=== PATIENT | female | born 1940 | race Caucasian/White ===

== ENCOUNTER 2018-10-23 21:05 | Observation (INO) | payer MEDICARE, BC ==
[2018-10-23] MEDS ORDERED: Nitroglycerin 0.4 MG Tab.SL ONE (21:27)
[2018-10-23] MEDS ORDERED: Metoprolol Tartrate 25 MG Tab PO ONE (21:27)
[2018-10-23] MEDS ORDERED: Metoprolol Tartrate 25 MG Tab ONE (21:27)
[2018-10-23] MEDS ORDERED: Nitroglycerin 0.4 MG Tab.SL SL PRN (21:27)
--- NOTE | 2018-10-23 21:32 | EDM.PDOC ---
ED HPI GENERAL MEDICAL PROBLEM - General Chief Complaint: Chest Pain Stated Complaint: chest pain, left arm pain Time Seen by Provider: 10/23/18 21:10 Source of Information: Reports: Patient, Family History Limitations: Reports: No Limitations - History of Present Illness INITIAL COMMENTS - FREE TEXT/NARRATIVE: Patient is a 78-year-old female who presents to the emergency room with chest pain patient states that around 12 she started having some chest discomfort this progressed to arouse for which he took some hydrocodone and aspirin without change in the pain progressed got worse and they decided to come to the ER at that time at this time pain is localized to the left mid upper chest radiating into the left arm pain is worse with movement and better with rest Onset: Today Duration: Hour(s):, Recurring Location: Reports: Chest Quality: Reports: Dull, Pressure, Throbbing Severity: Moderate Improves with: Reports: Rest Worsens with: Reports: Movement Associated Symptoms: Reports: Chest Pain 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, Other Medication(s) Left Chest Pain Score (Numeric/FACES): 6 - Related Data Allergies Allergy/AdvReac Type Severity Reaction Status Date / Time No Known Allergies Allergy Verified 10/23/18 21:13 Home Meds: Home Meds Calcium Carbonate [Calcium] 600 mg PO DAILY 11/16/14 [History] Folic Acid 1 mg PO WEEKLY 11/16/14 [History] Losartan [Cozaar] 50 mg PO DAILY 11/16/14 [History] Methotrexate Sodium [Methotrexate] 17.5 mg PO WEEKLY 11/16/14 [History] Pravastatin [Pravachol] 40 mg PO DAILY 11/16/14 [History] Aspirin [Halfprin] 81 mg PO BRK 04/13/15 [History] Multivitamin [Multivitamins] 1 tab PO DAILY 04/13/15 [History] Aspirin 325 mg PO ONETIME 10/23/18 [History] Hydrocodone/Acetaminophen [Hydrocodon-Acetaminophen 5-325] 1 tab PO ONETIME 05/01 [History] Past Medical History Cardiovascular History: Reports: CAD, High Cholesterol, Hypertension Other Cardiovascular History: Hyperlipidemia Musculoskeletal History: Reports: RA - Infectious Disease History Infectious Disease History: Reports: Measles - Past Surgical History GI Surgical History: Reports: Appendectomy, Cholecystectomy, Colonoscopy Female Surgical History: Reports: Other (See Below) Other Female Surgeries/Procedures: kidney cyst removed Social & Family History - Caffeine Use Caffeine Use: Reports: None ED ROS GENERAL - Review of Systems Review Of Systems: See Below Constitutional: Reports: No Symptoms HEENT: Reports: No Symptoms Respiratory: Reports: No Symptoms Cardiovascular: Reports: Chest Pain, Other (History of coronary arterial) GI/Abdominal: Reports: No Symptoms : Reports: No Symptoms Musculoskeletal: Reports: Neck Pain (Posterior), Arm Pain (Left arm) Skin: Reports: No Symptoms Neurological: Reports: No Symptoms Psychiatric: Reports: No Symptoms Hematologic/Lymphatic: Reports: No Symptoms Immunologic: Reports: No Symptoms ED EXAM, GENERAL - Physical Exam Exam: See Below Exam Limited By: No Limitations General Appearance: Alert, WD/WN, No Apparent Distress Ears: Normal External Exam, Normal Canal, Hearing Grossly Normal, Normal TMs Nose: Normal Inspection, Normal Mucosa, No Blood Throat/Mouth: Normal Inspection, Normal Lips, Normal Teeth, Normal Gums, Normal Oropharynx, Normal Voice, No Airway Compromise Head: Atraumatic, Normocephalic Neck: Limited Range of Motion, Tender Midline (Posterior) Respiratory/Chest: No Respiratory Distress, Lungs Clear, Normal Breath Sounds, No Accessory Muscle Use, Chest Non-Tender Cardiovascular: Normal Peripheral Pulses, Regular Rate, Rhythm, No Edema, No Gallop, No JVD, No Murmur, No Rub GI/Abdominal: Normal Bowel Sounds, Soft, Non-Tender, No Organomegaly, No Distention, No Abnormal Bruit, No Mass (Female) Exam: Deferred Rectal (Female) Exam: Deferred Back Exam: Normal Inspection, Full Range of Motion, NT Extremities: Normal Inspection, Normal Range of Motion, Non-Tender, Normal Capillary Refill, No Pedal Edema Course - Vital Signs Last Recorded V/S: Last Vital Signs Temp 99.4 F 10/23/18 21:05 Pulse 100 10/23/18 21:33 Resp 17 10/23/18 21:33 BP 136/60 10/23/18 21:33 Pulse Ox 92 L 10/23/18 21:33 - Orders/Labs/Meds Orders: Active Orders 24 hr Category Date Time Status Chest 1V Frontal [CR] Routine Exams 10/23/18 21:44 Taken Labs: Laboratory Tests 10/23/18 10/23/18 10/23/18 Range/Units 21:15 21:15 21:15 WBC 10.4 H (4.0-10.2) K/uL RBC 4.22 (3.77-5.09) M/uL Hgb 13.0 (11.7-15.5) g/dL Hct 39.1 (34.0-46.0) % MCV 92.7 (84.0-98.0) fL MCH 30.8 (28.2-33.3) pg MCHC 33.2 (31.7-36.0) g/dL RDW 15.2 H (11.2-14.1) % Plt Count 246 (150-350) K/uL Neut % (Auto) 69.7 (45.0-80.0) % Lymph % (Auto) 21.1 (10.0-50.0) % [place] % (Auto) 8.2 (2.0-14.0) % Eos % (Auto) 0.6 (0.0-5.0) % Baso % (Auto) 0.4 (0.0-2.0) % Neut # (Auto) 7.27 H (1.40-7.00) K/uL Lymph # (Auto) 2.20 (0.50-3.50) K/uL [place] # (Auto) 0.86 (0.00-1.00) K/uL Eos # (Auto) 0.06 (0.00-0.50) K/uL Baso # (Auto) 0.04 (0.00-0.20) K/uL PT 10.5 (9.5-12.0) SEC INR 1.0 APTT 26.2 (21.0-31.3) SEC D-Dimer, Quantitative (0-400) ng/mL Sodium 140 (136-145) mmol/L Potassium 3.5 (3.5-5.1) mmol/L Chloride 103 (98-107) mmol/L Carbon Dioxide 28.3 (21.0-32.0) mmol/L BUN 19 H (7-18) mg/dL Creatinine 0.72 (0.51-1.17) mg/dL Est Cr Clr Drug Dosing 52.41 mL/min Estimated GFR (MDRD) > 60 mL/min Glucose 146 H (74-106) mg/dL Lactic Acid (0.4-2.0) mmol/L Calcium 9.1 (8.5-10.1) mg/dL Magnesium 1.7 L (1.8-2.4) mg/dL Total Bilirubin 0.5 (0.2-1.0) mg/dL AST 26 (15-37) U/L ALT 24 (12-78) U/L Alkaline Phosphatase 77 (46-116) IU/L Creatine Kinase 51 (26-308) U/L Creatine Kinase Index 2.2 (0.0-2.5) % CK-MB (CK-2) 1.10 (0.00-3.60) ng/mL Troponin I 0.000 (0.000-0.056) ng/mL NT-Pro-B Natriuret Pep 152 H (0-125) pg/mL Total Protein 6.9 (6.4-8.2) g/dL Albumin 3.3 L (3.4-5.0) g/dL TSH, Ultra Sensitive 2.240 (0.358-3.740) mIU/mL 10/23/18 10/23/18 Range/Units 21:15 21:15 WBC (4.0-10.2) K/uL RBC (3.77-5.09) M/uL Hgb (11.7-15.5) g/dL Hct (34.0-46.0) % MCV (84.0-98.0) fL MCH (28.2-33.3) pg MCHC (31.7-36.0) g/dL RDW (11.2-14.1) % Plt Count (150-350) K/uL Neut % (Auto) (45.0-80.0) % Lymph % (Auto) (10.0-50.0) % [place] % (Auto) (2.0-14.0) % Eos % (Auto) (0.0-5.0) % Baso % (Auto) (0.0-2.0) % Neut # (Auto) (1.40-7.00) K/uL Lymph # (Auto) (0.50-3.50) K/uL [place] # (Auto) (0.00-1.00) K/uL Eos # (Auto) (0.00-0.50) K/uL Baso # (Auto) (0.00-0.20) K/uL PT (9.5-12.0) SEC INR APTT (21.0-31.3) SEC D-Dimer, Quantitative 630 H (0-400) ng/mL Sodium (136-145) mmol/L Potassium (3.5-5.1) mmol/L Chloride (98-107) mmol/L Carbon Dioxide (21.0-32.0) mmol/L BUN (7-18) mg/dL Creatinine (0.51-1.17) mg/dL Est Cr Clr Drug Dosing mL/min Estimated GFR (MDRD) mL/min Glucose (74-106) mg/dL Lactic Acid 0.8 (0.4-2.0) mmol/L Calcium (8.5-10.1) mg/dL Magnesium (1.8-2.4) mg/dL Total Bilirubin (0.2-1.0) mg/dL AST (15-37) U/L ALT (12-78) U/L Alkaline Phosphatase (46-116) IU/L Creatine Kinase (26-308) U/L Creatine Kinase Index (0.0-2.5) % CK-MB (CK-2) (0.00-3.60) ng/mL Troponin I (0.000-0.056) ng/mL NT-Pro-B Natriuret Pep (0-125) pg/mL Total Protein (6.4-8.2) g/dL Albumin (3.4-5.0) g/dL TSH, Ultra Sensitive (0.358-3.740) mIU/mL Meds: Medications Discontinued Medications Generic Name Dose Route Start Last Admin Trade Name Deng PRN Reason Stop Dose Admin Metoprolol Tartrate Confirm 10/23/18 21:27 Lopressor Administered 10/23/18 21:28 Dose 25 mg .ROUTE .STK-MED ONE Nitroglycerin Confirm 10/23/18 21:27 Nitrostat Administered 10/23/18 21:28 Dose 0.4 mg .ROUTE .STK-MED ONE Departure - Departure Time of Disposition: 23:17 Disposition: Refer to Observation Condition: Fair Clinical Impression: Atypical chest pain Chest pain Qualifiers: Chest pain type: unspecified Qualified Code(s): R07.9 - Chest pain, unspecified - My Orders Last 24 Hours: My Active Orders 10/23/18 21:44 Chest 1V Frontal [CR] Routine - Assessment/Plan Last 24 Hours: My Active Orders 10/23/18 21:44 Chest 1V Frontal [CR] Routine
[2018-10-23 21:49] LABS: CHLORIDE,CL 103 mmol/L (98-107); SODIUM,NA 140 mmol/L (136-145)
[2018-10-23] MEDS ORDERED: Ondansetron 4 MG Tab.DIS PO PRN (23:26)
[2018-10-24] MEDS ORDERED: Acetaminophen/HYDROcodone 325-10 MG Tab PO PRN (00:03)
[2018-10-24] MEDS ORDERED: Enoxaparin 30 MG/0.3 ML Syringe SUBCUT SCH (08:00)
--- NOTE | 2018-10-24 11:56 | PCM.DCSUM1 ---
Discharge Summary - Hospital Course Brief History: Admitted for serial troponin measurements and telemetry monitoring due to complaint of left sided chest and shoulder pain. Diagnosis: Stroke: No - Discharge Data Discharge Date: 10/24/18 Discharge Disposition: Home, Self-Care 01 Condition: Good - Discharge Diagnosis/Problem(s) (1) Left shoulder pain SNOMED Code(s): 58889237, 20416594 ICD Code: M25.512 - PAIN IN LEFT SHOULDER Status: Acute Priority: High Current Visit: Yes Onset Date: 10/23/18 Problem Details: Patient initially evaluated in ER due to development of left chest pain in pectoral area and left shoulder. This was noted several hours after washing windows. Patient reports that she has history of arthritis and has had similar pain in past after activity, but usually not as bad nor prolonged as this pain. Pain is reproducible with movement of left shoulder and palpation of left shoulder. Qualifiers: Chronicity: acute Qualified Code(s): M25.512 - Pain in left shoulder (2) Chest pain SNOMED Code(s): 47792990 ICD Code: R07.9 - CHEST PAIN, UNSPECIFIED Status: Acute Priority: High Current Visit: Yes Problem Details: Serial labs noted Troponin levels of zero. No acute changes on EKG suggestive of ischemia. Pain is reproducible with palpation and movement of left shoulder joint. Suspect musculoskeletal cause. Patient's DDimer elevated mildly. Patient denies SOB and does not wish to have a CT to formally rule out PE at this time. We discussed signs/symptoms suggestive of PE and she says that she will return for re-evaluation if any increasing concern develops. Qualifiers: Chest pain type: unspecified Qualified Code(s): R07.9 - Chest pain, unspecified - Patient Summary/Data Hospital Course: Negative serial troponins. Unremarkable telemetry. Patient is comfortable if she is able to sit/lie still. Pain complaint is triggered with movement of shoulder/pressure on shoulder. Discharge home at this time. To return if any worsening is noted. Consider CT of chest if any shortness of breath develops/ pain persists or worsens. Pt declined CT of chest today for r/o PE. Will give small amount of Prednisone and Tramadol to help with pain complaint. Precautions reviewed. To take it easy and follow up as needed if further problems are noted. - Patient Instructions Diet: Usual Diet as Tolerated Activity: Apply Ice, As Tolerated, No Lifting Over 10 Pounds, Rest and Relax Today Showering/Bathing: May Shower Other/Special Instructions: Take Magnesium supplement daily, 250mg to 500mg, to help increase your Magnesium levels. Get your level rechecked in 2-3 weeks. Return to the ER if you develop shortness of breath/increasing chest pain. As we discussed we may have to do another test to make certain that you don't have a blood clot causing the pain issue if this does not act like arthritis has in the past. Follow up as needed with your doctor, or if you have sudden worsening problems return to the ER. - Discharge Plan *PRESCRIPTION DRUG MONITORING PROGRAM REVIEWED*: Not Applicable *COPY OF PRESCRIPTION DRUG MONITORING REPORT IN PATIENT SAI: Not Applicable Prescriptions/Med Rec: predniSONE [Prednisone] 20 mg PO DAILY #3 tablet traMADol [Ultram] 50 mg PO Q6H PRN #15 tab PRN Reason: Pain Home Medications: Home Meds Calcium Carbonate [Calcium] 600 mg PO DAILY 11/16/14 [History] Folic Acid 1 mg PO WEEKLY 11/16/14 [History] Losartan [Cozaar] 50 mg PO DAILY 11/16/14 [History] Methotrexate Sodium [Methotrexate] 17.5 mg PO WEEKLY 11/16/14 [History] Pravastatin [Pravachol] 40 mg PO DAILY 11/16/14 [History] Aspirin [Halfprin] 81 mg PO BRK 04/13/15 [History] Multivitamin [Multivitamins] 1 tab PO DAILY 04/13/15 [History] Aspirin 325 mg PO ONETIME 10/23/18 [History] Hydrocodone/Acetaminophen [Hydrocodon-Acetaminophen 5-325] 1 tab PO ONETIME 05/01 [History] predniSONE [Prednisone] 20 mg PO DAILY #3 tablet 10/24/18 [Rx] traMADol [Ultram] 50 mg PO Q6H PRN #15 tab 10/24/18 [Rx] Patient Handouts: Nonspecific Chest Pain, [id number], Pulmonary Embolism, Joint Pain, [id number] Forms: ED Department Discharge Referrals: Amy Murry NP [Primary Care Provider] - - Discharge Summary/Plan Comment DC Time >30 min.: No - General Info Date of Service: 10/24/18 Admission Dx/Problem (Free Text: Left chest and shoulder pain Subjective Update: Feels pretty good unless she moves the left shoulder. If she does, pain complaint returns. Functional Status: Reports: Pain Controlled (Present, but improved), Tolerating Diet, Ambulating, Urinating. Denies: New Symptoms - Review of Systems General: Reports: No Symptoms HEENT: Denies: Headaches, Sinus Congestion, Sore Throat, Visual Changes Pulmonary: Reports: No Symptoms. Denies: Shortness of Breath, Pleuritic Chest Pain, Cough, Sputum, Hemoptysis, Wheezing Cardiovascular: Reports: Chest Pain. Denies: Palpitations, Dyspnea on Exertion , Orthopnea, Edema, Lightheadedness Gastrointestinal: Reports: No Symptoms Genitourinary: Reports: No Symptoms Musculoskeletal: Reports: Shoulder Pain. Denies: Joint Swelling Skin: Reports: No Symptoms Neurological: Reports: No Symptoms. Denies: Confusion, Headache, Numbness, Tingling, Difficulty Walking, Change in Speech Psychiatric: Reports: No Symptoms - Patient Data Vitals - Most Recent: Last Vital Signs Temp 36.8 C 10/24/18 08:00 Pulse 66 10/24/18 08:00 Resp 17 10/24/18 08:00 BP 136/61 10/24/18 08:00 Pulse Ox 93 L 10/24/18 08:00 Weight - Most Recent: 91.172 kg I&O - Last 24 hours: Intake & Output 10/23/18 10/24/18 10/24/18 22:59 06:59 14:59 Intake Total 100 Balance 100 Lab Results - Last 24 hrs: Laboratory Results - last 24 hr 10/23/18 10/23/18 10/23/18 Range/Units 21:15 21:15 21:15 WBC 10.4 H (4.0-10.2) K/uL RBC 4.22 (3.77-5.09) M/uL Hgb 13.0 (11.7-15.5) g/dL Hct 39.1 (34.0-46.0) % MCV 92.7 (84.0-98.0) fL MCH 30.8 (28.2-33.3) pg MCHC 33.2 (31.7-36.0) g/dL RDW 15.2 H (11.2-14.1) % Plt Count 246 (150-350) K/uL Neut % (Auto) 69.7 (45.0-80.0) % Lymph % (Auto) 21.1 (10.0-50.0) % [place] % (Auto) 8.2 (2.0-14.0) % Eos % (Auto) 0.6 (0.0-5.0) % Baso % (Auto) 0.4 (0.0-2.0) % Neut # (Auto) 7.27 H (1.40-7.00) K/uL Lymph # (Auto) 2.20 (0.50-3.50) K/uL [place] # (Auto) 0.86 (0.00-1.00) K/uL Eos # (Auto) 0.06 (0.00-0.50) K/uL Baso # (Auto) 0.04 (0.00-0.20) K/uL PT 10.5 (9.5-12.0) SEC INR 1.0 APTT 26.2 (21.0-31.3) SEC D-Dimer, Quantitative (0-400) ng/mL Sodium 140 (136-145) mmol/L Potassium 3.5 (3.5-5.1) mmol/L Chloride 103 (98-107) mmol/L Carbon Dioxide 28.3 (21.0-32.0) mmol/L BUN 19 H (7-18) mg/dL Creatinine 0.72 (0.51-1.17) mg/dL Est Cr Clr Drug Dosing 52.41 mL/min Estimated GFR (MDRD) > 60 mL/min Glucose 146 H (74-106) mg/dL Lactic Acid (0.4-2.0) mmol/L Calcium 9.1 (8.5-10.1) mg/dL Magnesium 1.7 L (1.8-2.4) mg/dL Total Bilirubin 0.5 (0.2-1.0) mg/dL AST 26 (15-37) U/L ALT 24 (12-78) U/L Alkaline Phosphatase 77 (46-116) IU/L Creatine Kinase 51 (26-308) U/L Creatine Kinase Index 2.2 (0.0-2.5) % CK-MB (CK-2) 1.10 (0.00-3.60) ng/mL Troponin I 0.000 (0.000-0.056) ng/mL NT-Pro-B Natriuret Pep 152 H (0-125) pg/mL Total Protein 6.9 (6.4-8.2) g/dL Albumin 3.3 L (3.4-5.0) g/dL TSH, Ultra Sensitive 2.240 (0.358-3.740) mIU/mL 10/23/18 10/23/18 10/24/18 Range/Units 21:15 21:15 03:20 WBC (4.0-10.2) K/uL RBC (3.77-5.09) M/uL Hgb (11.7-15.5) g/dL Hct (34.0-46.0) % MCV (84.0-98.0) fL MCH (28.2-33.3) pg MCHC (31.7-36.0) g/dL RDW (11.2-14.1) % Plt Count (150-350) K/uL Neut % (Auto) (45.0-80.0) % Lymph % (Auto) (10.0-50.0) % [place] % (Auto) (2.0-14.0) % Eos % (Auto) (0.0-5.0) % Baso % (Auto) (0.0-2.0) % Neut # (Auto) (1.40-7.00) K/uL Lymph # (Auto) (0.50-3.50) K/uL [place] # (Auto) (0.00-1.00) K/uL Eos # (Auto) (0.00-0.50) K/uL Baso # (Auto) (0.00-0.20) K/uL PT (9.5-12.0) SEC INR APTT (21.0-31.3) SEC D-Dimer, Quantitative 630 H (0-400) ng/mL Sodium (136-145) mmol/L Potassium (3.5-5.1) mmol/L Chloride (98-107) mmol/L Carbon Dioxide (21.0-32.0) mmol/L BUN (7-18) mg/dL Creatinine (0.51-1.17) mg/dL Est Cr Clr Drug Dosing mL/min Estimated GFR (MDRD) mL/min Glucose (74-106) mg/dL Lactic Acid 0.8 (0.4-2.0) mmol/L Calcium (8.5-10.1) mg/dL Magnesium (1.8-2.4) mg/dL Total Bilirubin (0.2-1.0) mg/dL AST (15-37) U/L ALT (12-78) U/L Alkaline Phosphatase (46-116) IU/L Creatine Kinase (26-308) U/L Creatine Kinase Index (0.0-2.5) % CK-MB (CK-2) (0.00-3.60) ng/mL Troponin I 0.000 (0.000-0.056) ng/mL NT-Pro-B Natriuret Pep (0-125) pg/mL Total Protein (6.4-8.2) g/dL Albumin (3.4-5.0) g/dL TSH, Ultra Sensitive (0.358-3.740) mIU/mL 10/24/18 Range/Units 09:50 WBC (4.0-10.2) K/uL RBC (3.77-5.09) M/uL Hgb (11.7-15.5) g/dL Hct (34.0-46.0) % MCV (84.0-98.0) fL MCH (28.2-33.3) pg MCHC (31.7-36.0) g/dL RDW (11.2-14.1) % Plt Count (150-350) K/uL Neut % (Auto) (45.0-80.0) % Lymph % (Auto) (10.0-50.0) % [place] % (Auto) (2.0-14.0) % Eos % (Auto) (0.0-5.0) % Baso % (Auto) (0.0-2.0) % Neut # (Auto) (1.40-7.00) K/uL Lymph # (Auto) (0.50-3.50) K/uL [place] # (Auto) (0.00-1.00) K/uL Eos # (Auto) (0.00-0.50) K/uL Baso # (Auto) (0.00-0.20) K/uL PT (9.5-12.0) SEC INR APTT (21.0-31.3) SEC D-Dimer, Quantitative (0-400) ng/mL Sodium (136-145) mmol/L Potassium (3.5-5.1) mmol/L Chloride (98-107) mmol/L Carbon Dioxide (21.0-32.0) mmol/L BUN (7-18) mg/dL Creatinine (0.51-1.17) mg/dL Est Cr Clr Drug Dosing mL/min Estimated GFR (MDRD) mL/min Glucose (74-106) mg/dL Lactic Acid (0.4-2.0) mmol/L Calcium (8.5-10.1) mg/dL Magnesium 1.8 (1.8-2.4) mg/dL Total Bilirubin (0.2-1.0) mg/dL AST (15-37) U/L ALT (12-78) U/L Alkaline Phosphatase (46-116) IU/L Creatine Kinase (26-308) U/L Creatine Kinase Index (0.0-2.5) % CK-MB (CK-2) (0.00-3.60) ng/mL Troponin I 0.000 (0.000-0.056) ng/mL NT-Pro-B Natriuret Pep (0-125) pg/mL Total Protein (6.4-8.2) g/dL Albumin (3.4-5.0) g/dL TSH, Ultra Sensitive (0.358-3.740) mIU/mL Med Orders - Current: Current Medications Hydrocodone Bitart/Acetaminophen ([place] 325-10 Mg) 1 tab PO Q6H PRN PRN Reason: Pain Last Admin: 10/24/18 00:22 Dose: 1 tab Enoxaparin Sodium (Lovenox) 30 mg SUBCUT DAILY MEAGHAN Last Admin: 10/24/18 08:42 Dose: 30 mg Nitroglycerin (Nitrostat) 0.4 mg SL Q5M PRN PRN Reason: Chest Pain Last Admin: 10/23/18 21:30 Dose: 0.4 mg Ondansetron HCl (Zofran Odt) 4 mg PO Q6H PRN PRN Reason: Nausea/Vomiting Discontinued Medications Metoprolol Tartrate (Lopressor) Confirm Administered Dose 25 mg .ROUTE .STK-MED ONE Stop: 10/23/18 21:28 Last Admin: 10/24/18 02:57 Dose: Not Given Metoprolol Tartrate (Lopressor) 25 mg PO ONETIME ONE Stop: 10/23/18 21:28 Last Admin: 10/23/18 21:28 Dose: 25 mg Nitroglycerin (Nitrostat) Confirm Administered Dose 0.4 mg .ROUTE .STK-MED ONE Stop: 10/23/18 21:28 Last Admin: 10/24/18 02:57 Dose: Not Given - Exam Quality Assessment: Reports: DVT Prophylaxis General: Reports: Alert, Oriented, Cooperative, No Acute Distress HEENT: Reports: Pupils Equal, Pupils Reactive, EOMI, Mucous Membr. Moist/[place] Neck: Reports: Supple Lungs: Reports: Normal Respiratory Effort, Rales (faint, fine, at bases only). Denies: Rhonchi, Rub, Stridor, Wheezing Cardiovascular: Reports: Regular Rate, Regular Rhythm, No Murmurs GI/Abdominal Exam: Soft, Non-Tender (Female) Exam: Deferred Rectal (Female) Exam: Deferred Back Exam: Reports: Other (tender with palpation over left scapula and left superior/posterior shoulder). Denies: CVA Tenderness (L), CVA Tenderness (R) Extremities: No Pedal Edema, Normal Capillary Refill, Other (Tender with palpation over left anterior/superior/posterior shoulder. Reproduces patient's pain complaint). No: Increased Warmth, Mottled, Pallor, Redness Skin: Reports: Warm, Dry Neurological: Reports: No New Focal Deficit Psy/Mental Status: Reports: Alert, Normal Affect, Normal Mood EKG INTERPRETATION EKG Date: 10/24/18 Time: 07:12 Rhythm: NSR Rate (Beats/Min): 66 Leroy: Normal P-Wave: Present QRS: Normal ST-T: Normal QT: Prolonged Comparison: Other: (yesterday's rate was in high 80s. Slower rate today. QT prolongation present today. Morphology overall is similar to yesterday.)
[2018-10-24] MEDS ORDERED: traMADol 50 MG Tab PO ONE (12:03)
[2018-10-24] MEDS ORDERED: predniSONE 20 MG Tab PO ONE (12:03)
[2018-10-24] MEDS ORDERED: Magnesium Oxide 400 MG Tab PO ONE (12:05)
[2018-10-24 12:40] VITALS: BP 130/64
== END 2018-10-24 13:06 | disposition home or self-care (01) ==
LOC: LL.ED 21:05 → UNDOADMOB 22:25 → LL.MS 22:25
PROVIDERS: ADMIT Emergency Medicine; ATTEND Emergency Medicine
DX: R07.9 Chest pain, unspecified (principal); M25.512 Pain in left shoulder; I25.10 Atherosclerotic heart disease of native coronary artery without angina pectoris; I10 Essential (primary) hypertension; E78.00 Pure hypercholesterolemia, unspecified; E78.5 Hyperlipidemia, unspecified; M06.9 Rheumatoid arthritis, unspecified; Z79.82 Long term (current) use of aspirin; Z79.899 Other long term (current) drug therapy; Z98.890 Other specified postprocedural states
CPT/HCPCS: 36415; 71045; 80053; 82550; 82553; 83605; 83735; 83880; 84443; 84484; 85025; 85379; 85610; 85730; 96372; A9270; G0378; J1650; 93005

== ENCOUNTER 2021-08-06 10:14 | Emergency (ER) | payer MEDICARE, BC ==
[2021-08-06] MEDS ORDERED: Nitroglycerin 0.4 MG Tab.SL ONE (10:24)
[2021-08-06] MEDS ORDERED: Nitroglycerin 0.4 MG Tab.SL SL PRN (10:25)
[2021-08-06] MEDS ORDERED: Sodium Chloride 0.9% 10 ML Syringe FLUSH PRN (10:25)
[2021-08-06] MEDS ORDERED: Nitroglycerin 0.4 MG Tab.SL SL ONE (10:28)
[2021-08-06] MEDS ORDERED: GI Cocktail Oral Solution 30 ML PO ONE (10:44)
[2021-08-06] MEDS ORDERED: Ondansetron 4 MG/2 ML SDV ONE (10:47)
[2021-08-06] MEDS ORDERED: Ondansetron 4 MG/2 ML SDV IVPUSH ONE (10:51)
[2021-08-06 11:00] LABS: ANION GAP 6.4 meq/L (7-15); CHLORIDE,CL 104 mmol/L (98-107); SODIUM,NA 139 mmol/L (136-145)
[2021-08-06] MEDS ORDERED: Iopamidol 755 Mg/ML 100 ML Bottle IVPUSH ONE (11:19)
[2021-08-06] MEDS ORDERED: Ketorolac 15 MG/ML SDV IVPUSH ONE (12:04)
[2021-08-06 19:26] VITALS: BP 115/47; PULSE 78
== END 2021-08-06 13:41 | disposition home or self-care (01) ==
LOC: LL.ED 10:14
DX: M94.0 Chondrocostal junction syndrome [Tietze] (principal); I25.10 Atherosclerotic heart disease of native coronary artery without angina pectoris; E78.00 Pure hypercholesterolemia, unspecified; I10 Essential (primary) hypertension; Z79.899 Other long term (current) drug therapy; Z79.82 Long term (current) use of aspirin
CPT/HCPCS: 36415; 71046; 71275; 80053; 81001; 82150; 83605; 83690; 83735; 83880; 84484; 85025; 85379; 93005; 93010; 96374; 96375; 99284; 99285-25; A9270-GY; J1885; J2405; J3490; Q9967